=== PATIENT | female | born 2000 | race Caucasian/White ===

== ENCOUNTER 2024-03-17 12:25 | Emergency (ER) | payer BC ==
[2024-03-17] MEDS ORDERED: Haloperidol Lactate 5 MG/ML VIAL ONE (12:46)
== END 2024-03-17 13:52 | disposition home or self-care (01) ==
LOC: MADERS 12:25
DX: R11.10 Vomiting, unspecified (principal); F17.290 Nicotine dependence, other tobacco product, uncomplicated
CPT/HCPCS: 94760; 96372; 99284; J1630